=== PATIENT | female | born 1965 | race Caucasian/White ===

== ENCOUNTER 2017-02-24 16:55 | Emergency (ER) | payer OTHER ==
[2017-02-24 17:06] VITALS: BP 124/70
[2017-02-24] MEDS ORDERED: DOXY100C2 PO (17:21)
--- NOTE | 2017-02-24 17:21 | PHYS DOC ---
Past Medical History Past Medical History: Fibromyalgia, High Cholesterol Past Surgical History: Tonsillectomy Alcohol Use: Occasionally Drug Use: None Adult General Chief Complaint Chief Complaint: MULTIPLE COMPLAINTS [facility] HPI Patient is a 51 year old female presents emergency department stating that last Saturday she started with sinus congestion and sinus pressure. She stated as these have is gone that she's developed a cough with nasal drainage and is green and yellow in color. She states that she is on medication and is traveling. She states that she has Tussionex in which her primary care provider and given her for cough. She states that this is been helping however she feels that she probably needs to be covered further. Patient denies any fever, chills or any nausea vomiting. Review of Systems Review of Systems Constitutional: Denies fever or chills [] Eyes: Denies change in visual acuity, redness, or eye pain [] HENT: nasal congestion and sore throat [] Respiratory: cough denies shortness of breath [] Cardiovascular: No additional information not addressed in HPI [] GI: Denies abdominal pain, nausea, vomiting, bloody stools or diarrhea [] : Denies dysuria or hematuria [] Musculoskeletal: Denies back pain or joint pain [] Integument: Denies rash or skin lesions [] Neurologic: Denies headache, focal weakness or sensory changes [] Endocrine: Denies polyuria or polydipsia [] Allergies Allergies Allergies Coded Allergies Type Severity Reaction Last Updated Verified No Known Drug Allergies 02/24/17 No Physical Exam Physical Exam Constitutional: Well developed, well nourished, no acute distress, non-toxic appearance. [] HENT: Normocephalic, atraumatic, bilateral external ears normal, oropharynx moist, no oral exudates, nose normal. Bilateral tympanic membranes appear to be normal. Patient with frontal and maxillary sinus tenderness. Patient with postnasal drip noted in the back of the throat that is clear in color. Patient with no anterior cervical adenopathy noted. Eyes: PERRLA, EOMI, conjunctiva normal, no discharge. [] Neck: Normal range of motion, no tenderness, supple, no stridor. [] Cardiovascular:Heart rate regular rhythm, no murmur [] Lungs & Thorax: Bilateral breath sounds clear to auscultation [] Skin: Warm, dry, no erythema, no rash. [] Back: No tenderness Extremities: No tenderness, no cyanosis, no clubbing, ROM intact, no edema. [] Neurologic: Alert and oriented X 3, normal motor function, normal sensory function, no focal deficits noted. [] Psychologic: Affect normal, judgement normal, mood normal. [] Current Patient Data Vital Signs Vital Signs Date Time Temp Pulse Resp B/P (MAP) Pulse Ox O2 Delivery O2 Flow Rate FiO2 02/24/17 17:06 98.5 100 20 98 Room Air 98.5 EKG EKG [] Radiology/Procedures Radiology/Procedures [] Course & Med Decision Making Course & Med Decision Making Pertinent Labs and Imaging studies reviewed. (See chart for details) Patient will continue with her cough medication which she hasn't home. She'll be provided with doxycycline for sinusitis infection. Patient was also encouraged to use Tylenol or ibuprofen. She was recommended Sudafed and Mucinex DM. Patient will be discharged home in stable condition signs symptoms to return back to emergency department has been provided. [] Dragon Disclaimer Dragon Disclaimer This electronic medical record was generated, in whole or in part, using a voice recognition dictation system. Departure Departure Impression: Primary Impression: Sinusitis Disposition: HOME, SELF-CARE Condition: STABLE Patient Instructions: Sinusitis, [id number] Additional Instructions: Medication as prescribed. Sudafed will also help with the sinus pressure. Mucinex DM will also help with the sinus congestion. Tylenol or ibuprofen for fever chills or generalized body aches and discomfort. Drink plenty of fluids. Follow-up to primary care physician in 5-7 days. Return back to emergency prior signs symptoms of become worse. Scripts Doxycycline Hyclate (DOXYCYCLINE HYCLATE) 100 Mg Capsule 1 CAP PO BID, #20 CAP Prov: GIUSEPPE SUBRAMANIAN APRN 02/24/17 GIUSEPPE SUBRAMANIAN [employer] Feb 24, 2017 17:21
== END 2017-02-24 18:17 | disposition home or self-care (01) ==
LOC: ER 16:55
DX: J32.9 Chronic sinusitis, unspecified (principal); E78.00 Pure hypercholesterolemia, unspecified; M79.7 Fibromyalgia
CPT/HCPCS: 99283